=== PATIENT | female | born 1990 ===

== ENCOUNTER 2023-02-04 15:33 | Emergency (ER) | payer OTHER ==
[~2023-02-04] VITALS: Ht 167.6 cm; Wt 95.5 kg
[2023-02-04 16:08] LABS: BASOPHILS % (AUTO) 0.7 % (0.0-2.0); EOSINOPHILS % (AUTO) 4.6 % (1.0-6.0); HEMOGLOBIN 12.7 g/dL (12.0-16.0); LYMPHOCYTES # (AUTO) 1.5 K/uL (1.0-4.8); LYMPHOCYTES % (AUTO) 35.1 % (22.0-44.0); MEAN CORPUSCULAR HEMOGLOBIN 28.9 pg (26.0-34.0); MEAN CORPUSCULAR HGB CONC 32.7 G/dL (31.0-37.0); MEAN CORPUSCULAR VOLUME 88 fL (80-100); MONOCYTES # (AUTO) 0.5 K/uL (0.1-1.0); MONOCYTES % (AUTO) 10.4 % (2.0-9.0); NEUTROPHILS # (AUTO) 2.2 K/uL (1.8-7.7); NEUTROPHILS % (AUTO) 49.2 % (40.0-70.0); PLATELET COUNT (AUTO) 281 K/uL (150-450); RED BLOOD CELL COUNT(AUTO) 4.42 MIL/uL (4.00-5.20); RED CELL DISTRIBUTION WIDTH 12.5 % (11.5-14.5)
[2023-02-04 16:14] LABS: CALCIUM, TOTAL 9.5 mg/dL (8.8-10.5); CREATININE 1.34 mg/dL (0.60-1.30); POTASSIUM 4.2 mmol/L (3.5-5.1)
[2023-02-04] MEDS ORDERED: ValACYclovir HCL 500 MG TABLET PO ONE (16:15)
[2023-02-04] MEDS ORDERED: PredniSONE 20 MG TABLET PO ONE (16:15)
[2023-02-04] MEDS ORDERED: HYDROCODONE/ACETAMINOPHEN 5-325 MG TABLET PO ONE (16:15)
[2023-02-04 16:19] LABS: BILIRUBIN,TOTAL 0.2 mg/dL (0.1-1.0); TOTAL PROTEIN, SERUM 8.7 g/dL (6.4-8.2)
[2023-02-04] MEDS ORDERED: VALA500T42 PO (16:21)
[2023-02-04] MEDS ORDERED: PRED-554 PO (16:21)
[2023-02-04] MEDS ORDERED: HYDR-4723 PO (16:21)
[2023-02-04 16:56] VITALS: BP 127/75
== END 2023-02-04 17:50 | disposition home or self-care (01) ==
LOC: EMS 15:38
DX: R10.2 Pelvic and perineal pain (principal); B02.9 Zoster without complications
CPT/HCPCS: 99285; 80053; 83690; 84703; 85025; 36415; J7512